=== PATIENT | female | born 1995 | race African-American/Black ===

== ENCOUNTER 2016-11-07 00:29 | Emergency (ER) | payer SELFPAY ==
[~2016-11-07 00:29] MED LIST: CETI10 PO; FLUT1SPR9; IBUP600 PO
[2017-01-18] MEDS ORDERED: ACYC400T PO (11:45)
== END 2016-11-07 15:01 | disposition left against medical advice (07) ==
LOC: NEPF 00:29
DX: Z03.89 Encounter for observation for other suspected diseases and conditions ruled out (principal)
CPT/HCPCS: 99281

== ENCOUNTER 2017-08-25 13:47 | Emergency (ER) | payer OTHER ==
[~2017-08-25] VITALS: Ht 167.6 cm; Wt 80.0 kg
[~2017-08-25 13:47] MED LIST changes: +ACYC400T PO; -CETI10 PO; -FLUT1SPR9; -IBUP600 PO
[2017-08-25 13:49] VITALS: BP 148/97; PULSE 87; RESP 14; TEMP 98.2; O2SAT 98
[2017-08-25] MEDS ORDERED: IBUP1TAB7 PO (18:04)
--- NOTE | 2017-08-25 18:04 | PD ---
HPI Chief Complaint: Pain: Acute or Chronic Time Seen by Provider: 17:51 Travel History International Travel<30 days: No Contact w/Intl Traveler<30days: No Traveled to known affect area: No History of Present Illness HPI 22-year-old female presents to the emergency department complaining of left knee pain for 3 weeks. States she is more active than normal terms of running and had pain the next day. States that she also had increased swelling and felt like her bones are rubbing together. Patient saw the school doctor and they prescribed ibuprofen 3 times a day [id number]. Her pain increases with movement and decreases with rest. Pain is mainly located in the inferior portion of the patella and posterior aspect of the knee and described as moderate. She is also complaining of left hip pain that has been chronic. Patient denies numbness or tingling of the extremities PFSH Past Medical History Asthma: Yes Diminished Hearing: No ?: Not Social History Alcohol Use: No Tobacco Use: No Substance Use: No Allergies-Medications (Allergen,Severity, Reaction): Coded Allergies: Fish Containing Products (Unverified Allergy, Severe, Anaphylaxis, 05/23/17 ) Reported Meds & Prescriptions Reported Meds & Active Scripts Active Ibuprofen 800 Mg Tab 800 Mg PO TID 3 Days Acyclovir 400 Mg Tab 400 Mg PO QID Review of Systems Except as stated in HPI: all other systems reviewed are Neg Physical Exam Narrative GENERAL: Well-nourished, well-developed patient, ambulatory in no apparent distress SKIN: Focused skin assessment warm/dry. HEAD: Normocephalic. EYES: No scleral icterus. No injection or drainage. NECK: Supple, trachea midline. No JVD or lymphadenopathy. MUSCULOSKELETAL: No cyanosis, or edema. RESPIRATORY: No accessory muscle use With knee- nontender to palpation, flexion and knee reproduce the pain, no crepitus or deformities and no obvious edema. Negative varus and valgus Right gluteus- TTP over gluteus, reproduces pain as described. Increased pain with flexion of the hip to approximately 90 so reproduces the pain BACK: Nontender without obvious deformity. No CVA tenderness. Data Data Last Documented VS Vital Signs Date Time Temp Pulse Resp B/P (MAP) Pulse Ox O2 Delivery O2 Flow Rate FiO2 08/25/17 13:49 98.2 87 14 148/97 (114) 98 Orders Orders Ed Discharge Order (08/25/17 18:05) MDM Medical Decision Making Medical Screen Exam Complete: Yes Emergency Medical Condition: Yes Differential Diagnosis pririformis syndrome or sciatica versus muscle spasm Right knee overuse injury versus facture versus tendinitis versus prepatellar bursitis Narrative Course 22-year-old female presents to the emergency department complaining of left knee pain for 3 weeks. States she is more active than normal terms of running and had pain the next day. States that she also had increased swelling and felt like her bones are rubbing together. Patient saw the [facility] doctor and they prescribed ibuprofen 3 times a day [id number]. Her pain increases with movement and decreases with rest. Pain is mainly located in the inferior portion of the patella and posterior aspect of the knee and described as moderate. She is also complaining of left hip pain that has been chronic. Patient denies numbness or tingling of the extremities Physical exam consistent with. Former syndrome and overuse injury of the left knee. Instructed patient on proper care and some rehabilitation of the knee. Advised to rest for at least one week to allow the need to heal Ibuprofen 800 mg 3 times a day Follow-up with primary care physician Diagnosis Primary Impression: Piriformis syndrome of left side Additional Impression: Knee injury Qualified Codes: S89.92XA - Unspecified injury of left lower leg, initial encounter Referrals: Primary Care Physician Additional Instructions: Follow-up with your primary care physician within 2 days. Medications as prescribed If her pain worsens or persists return to the emergency department Scripts Ibuprofen (Ibuprofen) 800 Mg Tab 800 MG PO TID for Arthritis Pain for 3 Days, TAB 0 Refills Prov: Daryn Martinez MD 08/25/17 Disposition: 01 DISCHARGE HOME Condition: Stable Eileen Love Aug 25, 2017 18:04
== END 2017-08-25 18:30 | disposition home or self-care (01) ==
LOC: NEPK 13:47
DX: G57.02 Lesion of sciatic nerve, left lower limb (principal); S89.92XA Unspecified injury of left lower leg, initial encounter; X50.9XXA Other and unspecified overexertion or strenuous movements or postures, initial encounter; Y93.02 Activity, running
CPT/HCPCS: 99283

== ENCOUNTER 2017-10-25 00:52 | Emergency (ER) | payer SELFPAY ==
[~2017-10-25] VITALS: Ht 167.6 cm; Wt 70.0 kg
[~2017-10-25 00:52] MED LIST changes: -ACYC400T PO; +IBUP1TAB7 PO
[2017-10-25 00:55] VITALS: BP 122/93; PULSE 92; RESP 16; TEMP 97.8; O2SAT 100
[2017-10-25] MEDS ORDERED: MOME17I EACH NARE (01:41)
[2017-10-25] MEDS ORDERED: ALLE12TA2 PO (01:41)
[2017-10-25] MEDS ORDERED: AFRI0.052 EACH NARE (01:41)
[2017-10-25] MEDS ORDERED: NAPROXEN 500 MG TAB PO ONE (01:45)
[2017-10-25] MEDS ORDERED: PSEUDOEPHEDRINE HCL 30 MG TAB PO ONE (01:45)
--- NOTE | 2017-10-25 01:46 | PD ---
HPI Chief Complaint: Cold / Flu Symptoms Time Seen by Provider: 01:10 Travel History International Travel<30 days: No Contact w/Intl Traveler<30days: No Traveled to known affect area: No History of Present Illness HPI 22-year-old black female presents emergency Department with a 24-hour history of runny nose, sneezing, coughing, sinus pressure and general malaise. She does admit to myalgias and arthralgias. No significant sore throat. No shortness of breath or wheezing. No nausea vomiting. No abdominal pain or diarrhea. No urinary symptoms. Symptoms are moderate. No alleviating factors. Worsened by sneezing and coughing. PFSH Past Medical History Asthma: Yes Diminished Hearing: No Tetanus Vaccination: < 5 Years ?: Not LMP: 10/25/17 Past Surgical History Surgical History: No Previous Surgery Social History Alcohol Use: No Tobacco Use: No Substance Use: No Allergies-Medications (Allergen,Severity, Reaction): Coded Allergies: Fish Containing Products (Unverified Allergy, Severe, Anaphylaxis, 10/25/17 ) Reported Meds & Prescriptions Reported Meds & Active Scripts Active Afrin Nasal [place] (Oxymetazoline HCl) 0.05% [place] 2-3 [place] EACH NARE Q12H PRN 3 Days Lorena-D 12 Hour Allergy (Fexofenadine-Pseudoephedrine ER 12 HR) 60-120 Mg Zhen 1 Tab PO BID Nasonex Nasal [place] (Mometasone Furoate) 50 Mcg/Act Naspr 2 [place] EACH NARE DAILY Review of Systems Except as stated in HPI: all other systems reviewed are Neg Physical Exam Narrative GENERAL: Well-developed, well-nourished in no acute distress. Nontoxic appearing. HEAD: Normocephalic, atraumatic. EYES: Pupils equal round and reactive. Extraocular motions intact. No scleral icterus. No injection or drainage. ENT: TMs clear without erythema. The external auditory canals clear. Nose: clear . Posterior pharynx is pink and moist. No tonsillar edema or exudate. Uvula midline. Airway patent. NECK: Trachea midline.Supple, nontender, moves head freely. No central bony tenderness or spasm. CARDIOVASCULAR: Regular rate and rhythm without murmurs, gallops, or rubs. RESPIRATORY: Clear to auscultation. Breath sounds equal bilaterally. No wheezes , rales, or rhonchi. GASTROINTESTINAL: Abdomen soft, non-tender, nondistended. No hepato-splenomegaly , or palpable masses. No guarding. EXTREMITIES: No clubbing, cyanosis, or edema. No joint tenderness, effusion, or edema noted. BACK: Nontender without deformity or crepitance. No flank tenderness. Data Data Last Documented VS Vital Signs Date Time Temp Pulse Resp B/P (MAP) Pulse Ox O2 Delivery O2 Flow Rate FiO2 10/25/17 00:55 97.8 92 16 122/93 (103) 100 Orders Orders Naproxen (Naprosyn) (10/25/17 01:45) Pseudoephedrine (Sudafed) (10/25/17 01:45) Ed Discharge Order (10/25/17 01:38) MDM Medical Decision Making Medical Screen Exam Complete: Yes Emergency Medical Condition: Yes Medical Record Reviewed: Yes Differential Diagnosis MDM: High Differential diagnoses: Pneumonia, bronchitis, URI, asthma, RAD, sinusitis, influenza, flulike illness Narrative Course The patient has a influenza-like illness. Patient is given Naprosyn 500 mg and Sudafed 60 mg by mouth. Diagnosis Primary Impression: Influenza-like illness Patient Instructions: General Instructions Departure Forms: School Release, Please excuse from school until (free text option): No school 2 days Tests/Procedures Additional Instructions: Rest. Increase fluids. Tylenol or Advil for any fever or muscle aches. Lorena-D, Afrin nasal spray, Nasonex. Follow-up with the clinic at school in the next 3-7 days. Return to the ER if any problems. Med/Other Pt SpecificInfo: Prescription(s) given Scripts Oxymetazoline Nasal (Afrin Nasal [place]) 0.05% [place] 2-3 SPRAY EACH NARE Q12H Y for NASAL CONGESTION for 3 Days, #1 BOTTLE 0 Refills Prov: Drea Chinchilla MD 10/25/17 Fexofenadine-Pseudoephedrine ER 12 HR ([place]na-D 12 Hour Allergy) 60-120 Mg Zhen 1 TAB PO BID for Allergy Management, #14 TAB 0 Refills Prov: Drea Chinchilla MD 10/25/17 Mometasone Nasal [place] (Nasonex Nasal [place]) 50 Mcg/Act Naspr 2 SPRAY EACH NARE DAILY for Allergy Management, #1 BOTTLE 0 Refills Prov: Drea Chinchilla MD 10/25/17 Disposition: 01 DISCHARGE HOME Condition: Stable Maxim Cutler Oct 25, 2017 01:46
== END 2017-10-25 02:15 | disposition home or self-care (01) ==
LOC: NEPD 00:52
DX: J11.1 Influenza due to unidentified influenza virus with other respiratory manifestations (principal); J45.909 Unspecified asthma, uncomplicated
CPT/HCPCS: 99283